=== PATIENT | female | born 1970 | race African-American/Black ===

== ENCOUNTER 2018-06-29 09:09 | Emergency (ER) | payer MEDICARE, OTHER ==
[2018-06-29 09:54] LABS: #Basophils 0.1 thou/uL (0.0-0.2); #Eosinphils 0.2 thou/uL (0.0-0.7); #Lymphocytes 1.6 thou/uL (1.20-3.40); #Monocytes 0.3 thou/uL (0.11-0.59); #Neutrophils 1.8 thou/uL (1.40-6.50); %Basophils 1.3 % (0.0-1.0); %Eosinophils 5.1 % (0.0-10.0); %Lymphocytes 41.1 % (21.0-51.0); %Monocytes 6.4 % (0.0-10.0); %Neutrophils 46.2 % (42.0-75.0); Hemoglobin 13.2 g/dL (12.0-16.0); Mean Corpuscular HGB CONC 32.4 g/dL (32.0-36.0); Mean Corpuscular Volume 98.7 fL (78.0-98.0); Mean Platelet Volume 9.9 fL (7.4-10.4); Platelet Count 216 thou/uL (130-400); RBC Distribution Width 11.2 % (11.5-14.5); Red Blood Cell (RBC) Count 4.12 mill/uL (4.20-5.40)
--- NOTE | 2018-06-29 10:16 | CT ---
CT OF THE BRAIN WITHOUT CONTRAST: Date: 06/29/18 COMPARISON: 08/12/12. HISTORY: Hypertension and headache. TECHNIQUE: Multiple contiguous axial images were obtained in a CT of the brain without contrast. FINDINGS: The brain is normal in morphology and attenuation without focal lesions or confluent areas of infarct ion. There is no evidence of hydrocephalus, intracranial hemorrhage, or extra-axial fluid collection. The calvarium and overlying soft tissues are unremarkable. The visualized paranasal sinuses and masto id air cells are well aerated. IMPRESSION: No evidence of acute intracranial abnormality. POS: [facility]
[2018-06-29 10:21] LABS: ALT (SGPT) 32 U/L (8-55); AST (SGOT) 20 U/L (5-34); Albumin 4.3 g/dL (3.5-5.0); Alkaline Phosphatase 92 U/L (40-150); Anion Gap 11 mmol/L (10-20); BUN (Urea Nitrogen) 11 mg/dL (7.0-18.7); Bilirubin, Total 0.4 mg/dL (0.2-1.2); Calc. Creatinine Clearance 0 mL/min (70-130); Calcium 9.5 mg/dL (7.8-10.44); Carbon Dioxide 25 mmol/L (22-29); Chloride 106 mmol/L (98-107); Estimated GFR-MDRD 75; Globulin 3.3 g/dL (2.4-3.5); Glucose 190 mg/dL (70-105); Potassium 4.1 mmol/L (3.5-5.1); Protein, Total 7.6 g/dL (6.0-8.3); Sodium 138 mmol/L (136-145)
[2018-06-29 10:25] LABS: CKMB 1.6 ng/mL (0-6.6); Troponin I Less than 0.010 ng/mL (< 0.028)
--- NOTE | 2018-07-02 23:07 | EKG ---
Test Reason : Blood Pressure : / mmHG Vent. Rate : 081 BPM Atrial Rate : 081 BPM P-R Int : 130 ms QRS Dur : 102 ms QT Int : 404 ms P-R-T Axes : 038 028 032 degrees QTc Int : 469 ms Sinus rhythm with Premature atrial complexes Nonspecific T wave abnormality Prolonged QT Abnormal ECG Confirmed by MARY GRANADOS ([id number]), digital editor VALE BANKS ([id number]) on 07/02/2018 11:07:16 PM Referred By: Confirmed By:MARY GRANADOS
== END 2018-06-29 10:57 | disposition home or self-care (01) ==
LOC: ERS 09:09
DX: I10 Essential (primary) hypertension (principal); F32.9 Major depressive disorder, single episode, unspecified; Z79.899 Other long term (current) drug therapy
CPT/HCPCS: 36415; 70450; 80053; 82553; 84484; 85025; 93005

== ENCOUNTER 2020-04-03 09:53 | Emergency (ER) | payer MEDICARE, OTHER ==
[2020-04-04 18:15] LABS: SARS-CoV-2 MS2 Positive; SARS-CoV-2 N Gene Negative; SARS-CoV-2 S Gene Negative; SARS-CoV-2 by NAA Not Detected (NotDetected); SARS-CoV-2 orf1ab Negative
== END 2020-04-03 10:15 | disposition home or self-care (01) ==
LOC: ERS 09:53
DX: R50.9 Fever, unspecified (principal); R05 Cough; R19.7 Diarrhea, unspecified; Z20.828 Contact with and (suspected) exposure to other viral communicable diseases; E11.9 Type 2 diabetes mellitus without complications; I10 Essential (primary) hypertension; Z79.899 Other long term (current) drug therapy
CPT/HCPCS: 99284; U0003; 87635

== ENCOUNTER 2022-04-26 11:24 | Emergency (ER) | payer MEDICARE, MEDICAID ==
[2022-04-26] MEDS ORDERED: Ketorolac Tromethamine 30 MG/ML VIAL ONE (13:08)
[2022-04-26] MEDS ORDERED: Ondansetron PF 4 MG/2 ML Vial ONE (13:08)
[2022-04-26] MEDS ORDERED: Morphine 4 MG/ML VIAL ONE ×2 (13:08→14:26)
[2022-04-26 13:25] LABS: #Eosinphils 0.1 thou/uL (0.0-0.7); #Lymphocytes 1.2 thou/uL (1.20-3.40); #Monocytes 0.4 thou/uL (0.11-0.59); #Neutrophils 6.3 thou/uL (1.40-6.50); %Basophils 0.3 % (0.0-1.0); %Eosinophils 0.9 % (0.0-10.0); %Lymphocytes 15.5 % (21.0-51.0); %Monocytes 5.1 % (0.0-10.0); %Neutrophils 78.3 % (42.0-75.0); Hemoglobin 13.6 g/dL (12.0-16.0); Mean Corpuscular HGB CONC 33.5 g/dL (32.0-36.0); Mean Corpuscular Hemoglobin 32.6 pg (27.0-31.0); Mean Corpuscular Volume 97.3 fL (78.0-98.0); Platelet Count 168 thou/uL (130-400); RBC Distribution Width 10.9 % (11.5-14.5); Red Blood Cell (RBC) Count 4.17 mill/uL (4.20-5.40)
[2022-04-26 13:48] LABS: Anion Gap 17 mmol/L (10-20); BUN (Urea Nitrogen) 9 mg/dL (9.8-20.1); Calc. Creatinine Clearance 0 mL/min (70-130); Carbon Dioxide 22 mmol/L (22-29); Chloride 103 mmol/L (98-107); Potassium 4.3 mmol/L (3.5-5.1); Sodium 138 mmol/L (136-145)
[2022-04-26 13:49] LABS: ALT (SGPT) 27 U/L (8-55); AST (SGOT) 16 U/L (5-34); Albumin 4.4 g/dL (3.5-5.0); Alkaline Phosphatase 125 U/L (40-110); Bilirubin, Total 0.7 mg/dL (0.2-1.2); Calcium 9.7 mg/dL (7.8-10.44); Estimated GFR 69; Globulin 2.8 g/dL (2.4-3.5); Glucose 282 mg/dL (70-105); Protein, Total 7.2 g/dL (6.0-8.3)
== END 2022-04-26 15:52 | disposition home or self-care (01) ==
LOC: ERS 11:24
DX: S52.041A Displaced fracture of coronoid process of right ulna, initial encounter for closed fracture (principal); I10 Essential (primary) hypertension; E11.9 Type 2 diabetes mellitus without complications; E78.00 Pure hypercholesterolemia, unspecified; W08.XXXA Fall from other furniture, initial encounter
CPT/HCPCS: 36415; 36416; 71045; 80053; 85025; 96374; 96375; 96376; J1885; J2270; J2405

== ENCOUNTER 2022-06-09 10:14 | Observation (INO) | payer MEDICARE, MEDICAID ==
[2022-06-09] MEDS ORDERED: CEFAZOLIN 2 GM VIAL ONE (11:33)
[2022-06-09] MEDS ORDERED: Sodium Chloride 0.9% 100 ML ONE (11:34)
[2022-06-09] MEDS ORDERED: Fentanyl 100 MCG/2 ML VIAL ONE (11:53)
[2022-06-09] MEDS ORDERED: Lidocaine 1% (PF) 30 ML VIAL ONE (11:53)
[2022-06-09] MEDS ORDERED: Midazolam HCl 2 mg/2 ml Vial ONE (11:53)
[2022-06-09] MEDS ORDERED: fentaNYL Citrate/PF 100 MCG/2 ML SYRINGE ONE ×2 (12:44→15:57)
[2022-06-09] MEDS ORDERED: PHENYLEPHRINE-NS 100 MCG/ML 10 ML SYRINGE ONE (13:05)
[2022-06-09] MEDS ORDERED: Ketorolac Tromethamine 30 MG/ML VIAL ONE (13:05)
[2022-06-09] MEDS ORDERED: Ropivacaine 0.5% HCl/PF (150 MG/30 ML VIAL) ONE (13:05)
[2022-06-09] MEDS ORDERED: PROPOFOL 200 MG/20 ML VIAL ONE (13:05)
[2022-06-09] MEDS ORDERED: Dexamethasone 20 MG/5 ML VIAL ONE (13:05)
[2022-06-09] MEDS ORDERED: Ondansetron PF 4 MG/2 ML Vial ONE (13:05)
[2022-06-09] MEDS ORDERED: Ondansetron PF 4 MG/2 ML Vial IVP PRN (16:18)
[2022-06-09] MEDS: glyBURIDE 5 MG TAB PO SCH (21:25)
[2022-06-09] MEDS: Venlafaxine HCl XR 150 MG CAP PO SCH (21:25)
[2022-06-09] MEDS: metFORMIN 500 MG TAB PO SCH (21:25)
[2022-06-09] MEDS: HYDROcodone/Acetaminophen 10/325 mg Tablet PO PRN (21:26)
[2022-06-09] MEDS: CEFAZOLIN 2 GM in Sodium Chloride 0.9% 100 ML IVPB SCH (21:27)
[2022-06-09 23:11] VITALS: BMI 36.6
[2022-06-10] MEDS: traMADol HCl 50 MG TAB PO PRN ×3 (00:32→12:13)
[2022-06-10] MEDS: Ibuprofen 200 MG TAB PO PRN ×2 (00:33→08:55)
[2022-06-10] MEDS: CEFAZOLIN 2 GM in Sodium Chloride 0.9% 100 ML IVPB SCH (04:31)
[2022-06-10] MEDS: HYDROcodone/Acetaminophen 10/325 mg Tablet PO PRN ×3 (04:31→20:24)
[2022-06-10] MEDS: Fentanyl 100 MCG/2 ML VIAL SLOW IVP PRN ×3 (04:34→13:33)
[2022-06-10 07:05] LABS: #Lymphocytes 1.9 thou/uL (1.20-3.40); #Monocytes 0.8 thou/uL (0.11-0.59); #Neutrophils 6.1 thou/uL (1.40-6.50); %Eosinophils 0.3 % (0.0-10.0); %Lymphocytes 21.7 % (21.0-51.0); %Monocytes 9.4 % (0.0-10.0); %Neutrophils 68.6 % (42.0-75.0); Hemoglobin 9.3 g/dL (12.0-16.0); Mean Corpuscular HGB CONC 31.6 g/dL (32.0-36.0); Mean Corpuscular Hemoglobin 31.3 pg (27.0-31.0); Mean Corpuscular Volume 98.9 fL (78.0-98.0); Mean Platelet Volume 10.9 fL (7.4-10.4); Platelet Count 153 thou/uL (130-400); RBC Distribution Width 11.2 % (11.5-14.5); RBC Morphology Normal; Red Blood Cell (RBC) Count 2.98 mill/uL (4.20-5.40); White Blood Cell (WBC) Count 8.9 thou/uL (4.8-10.8)
[2022-06-10] MEDS: metFORMIN 500 MG TAB PO SCH ×2 (08:55→20:24)
[2022-06-10] MEDS: Atorvastatin Calcium 40 MG TAB PO SCH (08:55)
[2022-06-10] MEDS: Meloxicam 15 MG TAB PO SCH (08:57)
[2022-06-10] MEDS: Venlafaxine HCl XR 150 MG CAP PO SCH ×2 (08:57→20:24)
[2022-06-10] MEDS: lamoTRIgine 100 MG TAB PO SCH (10:36)
[2022-06-10] MEDS: glyBURIDE 5 MG TAB PO SCH ×2 (10:36→20:24)
[2022-06-10] MEDS ORDERED: Cyclobenzaprine 10 MG TAB PO PRN (12:42)
[2022-06-10] MEDS ORDERED: Fentanyl 100 MCG/2 ML VIAL ONE (15:15)
[2022-06-10] MEDS ORDERED: Ropivacaine 0.5% HCl/PF (150 MG/30 ML VIAL) ONE (15:30)
[2022-06-10] MEDS ORDERED: Zolpidem Tartrate 5 MG TAB PO PRN (15:30)
[2022-06-10] MEDS ORDERED: Ropivacaine 0.2% 550 ML 550 ML NERVE BLCK SCH (15:30)
[2022-06-10] MEDS ORDERED: Promethazine HCl 25 MG/ML VIAL IM PRN (15:30)
[2022-06-11] MEDS: traMADol HCl 50 MG TAB PO PRN ×3 (00:36→15:17)
[2022-06-11] MEDS: Atorvastatin Calcium 40 MG TAB PO SCH (08:42)
[2022-06-11] MEDS: glyBURIDE 5 MG TAB PO SCH (08:42)
[2022-06-11] MEDS: Meloxicam 15 MG TAB PO SCH (08:42)
[2022-06-11] MEDS: metFORMIN 500 MG TAB PO SCH (08:42)
[2022-06-11] MEDS: lamoTRIgine 100 MG TAB PO SCH (08:42)
[2022-06-11] MEDS: Venlafaxine HCl XR 150 MG CAP PO SCH (08:43)
[2022-06-11] MEDS ORDERED: Ropivacaine 0.5% HCl/PF (150 MG/30 ML VIAL) ONE (09:49)
[2022-06-11] MEDS: HYDROcodone/Acetaminophen 10/325 mg Tablet PO PRN (11:40)
[2022-06-11] MEDS: Ibuprofen 200 MG TAB PO PRN (15:16)
[2022-06-11 16:53] VITALS: BP 119/75; TEMP 98.1
== END 2022-06-11 18:00 | disposition home or self-care (01) ==
LOC: SDC 10:14 → SURG B 18:35
PROVIDERS: ADMIT Orthopaedic Surgery; ATTEND Orthopaedic Surgery
PROC: 0PSH04Z Reposition Right Radius with Internal Fixation Device, Open Approach (ICD-10-PCS; principal; 2022-06-09)
PROC: 0PSK04Z Reposition Right Ulna with Internal Fixation Device, Open Approach (ICD-10-PCS; 2022-06-09)
DX: S52.041A Displaced fracture of coronoid process of right ulna, initial encounter for closed fracture (principal); S52.131A Displaced fracture of neck of right radius, initial encounter for closed fracture; M24.421 Recurrent dislocation, right elbow; J30.9 Allergic rhinitis, unspecified; Z79.1 Long term (current) use of non-steroidal anti-inflammatories (NSAID); Z79.84 Long term (current) use of oral hypoglycemic drugs; Z79.899 Other long term (current) drug therapy; Z20.822 Contact with and (suspected) exposure to COVID-19; W19.XXXA Unspecified fall, initial encounter
CPT/HCPCS: 24665; 24685; 73070; 76000; 85025; 87811; 96374; 96375; 96376; A4306; C1713 ×4; C1776; G0378 ×3; 36415; J0690; J1100; J1885; J2001; J2250; J2405; J2704; J2795; J3010; J3490

== ENCOUNTER 2022-07-03 06:08 | Day surgery (SDC) | payer MEDICARE, MEDICAID ==
[2022-07-02 09:12] VITALS: BMI 33.1
[2022-07-03] MEDS ORDERED: fentaNYL PF 100 MCG/2 ML SYRINGE ONE (06:37)
[2022-07-03] MEDS ORDERED: Bupivacaine HCl 0.5%/Epinephrine 1:200,000/PF 30 ml Vial ONE (06:51)
[2022-07-03] MEDS ORDERED: Gentamicin 80 MG/2 ML VIAL ONE (06:51)
[2022-07-03] MEDS ORDERED: CEFAZOLIN 2 GM VIAL ONE (07:30)
[2022-07-03] MEDS ORDERED: Sodium Chloride 0.9% 100 ML ONE (07:30)
[2022-07-03] MEDS ORDERED: Ketorolac Tromethamine 30 MG/ML VIAL ONE (07:43)
[2022-07-03] MEDS ORDERED: Ondansetron PF 4 MG/2 ML Vial ONE (07:43)
[2022-07-03] MEDS ORDERED: PROPOFOL 200 MG/20 ML VIAL ONE (07:43)
[2022-07-03] MEDS ORDERED: PHENYLEPHRINE-NS 100 MCG/ML 10 ML SYRINGE ONE (07:43)
[2022-07-03] MEDS ORDERED: FENTANYL 50 MCG/ML 1 ML VIAL ONE ×2 (08:33→08:57)
[2022-07-03] MEDS ORDERED: Morphine 4 MG/ML VIAL ONE (09:13)
[2022-07-03] MEDS ORDERED: HYDROcodone/Acetaminophen 5/325 mg Tablet ONE (10:32)
== END 2022-07-03 11:44 | disposition home or self-care (01) ==
LOC: SDC 06:08
PROVIDERS: ATTEND Orthopaedic Surgery
PROC: 0RPL04Z Removal of Internal Fixation Device from Right Elbow Joint, Open Approach (ICD-10-PCS; principal; 2022-07-03)
PROC: 0X9B0ZZ Drainage of Right Elbow Region, Open Approach (ICD-10-PCS; 2022-07-03)
DX: S50.01XA Contusion of right elbow, initial encounter (principal); T84.84XA Pain due to internal orthopedic prosthetic devices, implants and grafts, initial encounter; J30.9 Allergic rhinitis, unspecified; Z79.1 Long term (current) use of non-steroidal anti-inflammatories (NSAID); Z79.84 Long term (current) use of oral hypoglycemic drugs; Z79.899 Other long term (current) drug therapy; X58.XXXA Exposure to other specified factors, initial encounter; Y79.3 Surgical instruments, materials and orthopedic devices (including sutures) associated with adverse incidents
CPT/HCPCS: 10140; 20680; 73070; J3010; J1580; J1885; J2270; J2405; J2704; J3490

== ENCOUNTER 2022-09-17 07:28 | Outpatient (CLI) | payer MEDICARE, MEDICAID ==
[2022-09-17] MEDS ORDERED: Sodium Chloride 0.9% (PF) 10 ML VIAL ONE (08:30)
[2022-09-17] MEDS ORDERED: Iopamidol 300 61% 50 ML VIAL FS ONE (08:30)
[2022-09-17] MEDS ORDERED: Lidocaine 1% PF 5 ML VIAL ONE (08:30)
[2022-09-17] MEDS ORDERED: EPINEPHrine 1 MG/ML AMP ONE (08:30)
[2022-09-17] MEDS ORDERED: Iopamidol 300 61% 100 ML VIAL FS ONE (15:32)
== END 2022-09-17 07:29 | disposition home or self-care (01) ==
LOC: RAD 07:28
PROVIDERS: ATTEND Orthopaedic Surgery
DX: S52.021A Displaced fracture of olecranon process without intraarticular extension of right ulna, initial encounter for closed fracture (principal); S53.11 Anterior subluxation and dislocation of ulnohumeral joint
CPT/HCPCS: 24220; J0171; Q9967

== ENCOUNTER 2022-10-08 12:54 | Outpatient (CLI) | payer MEDICARE, MEDICAID ==
[2022-10-08 13:58] LABS: #Eosinphils 0.2 10x3/uL (0.0-0.5); #Monocytes 0.3 10x3/uL (0.0-1.1); #Neutrophils 2.3 10x3/uL (1.5-8.4); %Basophils 0.4 % (0.0-2.0); %Eosinophils 3.5 % (0.0-6.0); %Lymphocytes 46.2 % (18.0-47.0); %Monocytes 5.2 % (0.0-10.0); %Neutrophils 44.5 % (40.0-75.0); Hemoglobin 12.9 g/dL (12.0-15.5); Mean Corpuscular HGB CONC 33.2 g/dL (32.0-36.0); Mean Corpuscular Hemoglobin 31.3 pg (27.0-33.0); Mean Corpuscular Volume 94.2 fl (81.6-98.3); Mean Platelet Volume 12.3 fl (7.4-10.4); Platelet Count 224 10x3/uL (150-450); RBC Distribution Width 12.2 % (11.5-14.5); Red Blood Cell (RBC) Count 4.12 10x6/uL (3.90-5.03); White Blood Cell (WBC) Count 5.2 10x3/uL (3.5-10.5)
[2022-10-08 13:59] LABS: Anion Gap 15 mmol/L (10-20); BUN (Urea Nitrogen) 7 mg/dL (9.8-20.1); Calc. Creatinine Clearance 0 mL/min (70-130); Calcium 9.6 mg/dL (7.8-10.44); Carbon Dioxide 23 mmol/L (22-29); Chloride 104 mmol/L (98-107); Estimated GFR 79; Glucose 220 mg/dL (70-105); Potassium 4.1 mmol/L (3.5-5.1); Sodium 138 mmol/L (136-145)
== END 2022-10-08 12:55 | disposition home or self-care (01) ==
LOC: LABBT 12:54
PROVIDERS: ATTEND Orthopaedic Surgery
DX: Z01.818 Encounter for other preprocedural examination (principal); S52.041A Displaced fracture of coronoid process of right ulna, initial encounter for closed fracture
CPT/HCPCS: 80048; 85025; 93005; 93010

== ENCOUNTER 2022-10-13 06:12 | Inpatient (IN) | payer MEDICARE, MEDICAID ==
[2022-10-09 09:41] VITALS: BMI 33.3
[2022-10-13] MEDS ORDERED: Midazolam HCl 2 mg/2 ml Vial ONE (09:48)
[2022-10-13] MEDS ORDERED: Fentanyl 250 MCG/5 ML VIAL ONE (09:48)
[2022-10-13] MEDS ORDERED: CEFAZOLIN 2 GM VIAL ONE (10:05)
[2022-10-13] MEDS ORDERED: Sodium Chloride 0.9% 100 ML ONE (10:05)
[2022-10-13] MEDS ORDERED: PHENYLEPHRINE-NS 100 MCG/ML 10 ML SYRINGE ONE (10:14)
[2022-10-13] MEDS ORDERED: Lidocaine 1% PF 5 ML VIAL ONE (10:14)
[2022-10-13] MEDS ORDERED: Rocuronium Bromide 10 MG/ML (10ML VIAL) ONE (10:14)
[2022-10-13] MEDS ORDERED: Ondansetron PF 4 MG/2 ML Vial ONE (10:14)
[2022-10-13] MEDS ORDERED: Bupivacaine HCl 0.5%/Epinephrine 1:200,000/PF 30 ml Vial ONE (10:14)
[2022-10-13] MEDS ORDERED: PROPOFOL 200 MG/20 ML VIAL ONE (10:14)
[2022-10-13] MEDS ORDERED: Dexamethasone 20 MG/5 ML VIAL ONE (10:14)
[2022-10-13] MEDS ORDERED: Meperidine HCl/PF 25 MG/ML VIAL SLOW IVP PRN ×2 (10:37)
[2022-10-13] MEDS ORDERED: Ketorolac Tromethamine 30 MG/ML VIAL IVP PRN (10:37)
[2022-10-13] MEDS ORDERED: HYDROmorphone 2 MG/ML VIAL SLOW IVP PRN (10:37)
[2022-10-13] MEDS ORDERED: Ondansetron HCl/PF 4 MG/2 ML Vial IVP PRN (10:37)
[2022-10-13] MEDS ORDERED: Promethazine HCl 25 MG/ML VIAL IM PRN (10:37)
[2022-10-13] MEDS ORDERED: Bupivacaine PF 0.5% 30 ML VIAL ONE (13:28)
[2022-10-13] MEDS ORDERED: HYDROmorphone 0.5 MG/0.5 ML SYRINGE ONE ×2 (14:41→14:58)
[2022-10-13] MEDS ORDERED: TETANUS, DIPHTHERIA TOX,ADULT (TDVAX) 0.5 ML VIAL IM ONE (15:54)
[2022-10-13] MEDS ORDERED: Ondansetron PF 4 MG/2 ML Vial SLOW IVP PRN (15:54)
[2022-10-13] MEDS ORDERED: HYDROcodone/Acetaminophen 10/325 mg Tablet PO PRN (15:54)
[2022-10-13] MEDS ORDERED: Communication Order-Pharmacy FS SCH (16:00)
[2022-10-13 17:25] LABS: SARS-CoV-2 NAA Rapid Test Not Detected (NotDetected)
[2022-10-13] MEDS: Ketorolac Tromethamine 30 MG/ML VIAL IVP SCH ×2 (18:38→23:41)
[2022-10-13] MEDS ORDERED: CEFAZOLIN 2 GM in Sodium Chloride 0.9% 100 ML IVPB SCH (22:00)
[2022-10-13] MEDS: HYDROcodone/Acetaminophen 10/325 mg Tablet PO PRN (22:42)
[2022-10-14] MEDS: Ketorolac Tromethamine 30 MG/ML VIAL IVP SCH ×3 (05:18→19:58)
[2022-10-14] MEDS: HYDROcodone/Acetaminophen 10/325 mg Tablet PO PRN ×4 (05:23→19:57)
[2022-10-14] MEDS ORDERED: ALPRAZolam 1 MG TAB PO PRN (17:05)
[2022-10-14] MEDS: metFORMIN 500 MG TAB PO SCH (19:56)
[2022-10-14] MEDS: Venlafaxine HCl XR 150 MG CAP PO SCH (19:58)
[2022-10-14] MEDS ORDERED: lamoTRIgine 100 MG TAB PO SCH (21:00)
[2022-10-14] MEDS ORDERED: Atorvastatin Calcium 40 MG TAB PO SCH (21:00)
[2022-10-15] MEDS: HYDROcodone/Acetaminophen 10/325 mg Tablet PO PRN (06:14)
[2022-10-15] MEDS: metFORMIN 500 MG TAB PO SCH (07:51)
[2022-10-15] MEDS: Venlafaxine HCl XR 150 MG CAP PO SCH (07:52)
[2022-10-15] MEDS ORDERED: glyBURIDE 5 MG TAB PO SCH (08:00)
[2022-10-15 08:07] VITALS: BP 121/73; TEMP 98.5
[2022-10-15] MEDS ORDERED: lamoTRIgine 100 MG TAB PO SCH (09:00)
== END 2022-10-15 10:45 | disposition home or self-care (01) | DRG 497 ==
LOC: SDC 06:12 → SURG A 16:00 → OBSVTOIN 10-14 08:33
PROVIDERS: ADMIT Orthopaedic Surgery; ATTEND Orthopaedic Surgery
PROC: 0PPH04Z Removal of Internal Fixation Device from Right Radius, Open Approach (ICD-10-PCS; principal; 2022-10-13)
PROC: 0RQL0ZZ Repair Right Elbow Joint, Open Approach (ICD-10-PCS; 2022-10-13)
PROC: 0MQ30ZZ Repair Right Elbow Bursa and Ligament, Open Approach (ICD-10-PCS; 2022-10-13)
PROC: 0RU Upper Joints, Supplement (ICD-10-PCS; 2022-10-13)
DX: S52.121P Displaced fracture of head of right radius, subsequent encounter for closed fracture with malunion (principal); S52.04 Fracture of coronoid process of ulna; S53.106A Unspecified dislocation of unspecified ulnohumeral joint, initial encounter; Z20.822 Contact with and (suspected) exposure to COVID-19; M24.521 Contracture, right elbow
CPT/HCPCS: 96374; 96375; 96376; C1713; C1776; G0378; J1100; J1170; J1885; J2250; J2405; J2704; J3010; J3490; S0020; U0002

== ENCOUNTER 2023-11-24 10:21 | Outpatient (CLI) | payer MEDICARE, MEDICAID | END 2023-11-24 10:22 | disposition home or self-care (01) | LOC: BICMRI 10:21 | PROVIDERS: ATTEND Orthopaedic Surgery | DX: M47.22 Other spondylosis with radiculopathy, cervical region (principal); M48.03 Spinal stenosis, cervicothoracic region; M47.813 Spondylosis without myelopathy or radiculopathy, cervicothoracic region | CPT/HCPCS: 72141 ==